=== PATIENT | female | born 1950 | race Caucasian/White ===

== ENCOUNTER → 2016-12-14 | Outpatient (CLI) | payer OTHER, BC ==
[~2016-12-14] MED LIST: GADOBUTROL 10 ML VIAL IVP ONE
== END ==
LOC: FIMAGING 12:16
PROVIDERS: ATTEND Family Medicine
DX: Z12.31 Encounter for screening mammogram for malignant neoplasm of breast (principal); Z80.3 Family history of malignant neoplasm of breast
CPT/HCPCS: 0159T; A9585; C8908; G0202

== ENCOUNTER 2017-03-09 06:11 | Inpatient (IN) | payer OTHER, BC ==
[~2017-03-09 06:11] MED LIST changes: +ACETAMINOPHEN 325 MG TAB PO ONE; +DEXAMETHASONE 4 MG/ML VIAL IVP ONE; +FAMOTIDINE 20 MG TAB PO ONE; -GADOBUTROL 10 ML VIAL IVP ONE; +ROPIVACAINE 0.2% 80 MG, EPINEPHrine 0.2 MG, KETOROLAC TROMETHAMINE 30 MG in SYRINGE 0 ML IU ONE; +TRANEXAMIC ACID 3,000 MG in NS 50 ML IRR ONE; +ceFAZolin 2 GM/SWFI 2 GM/20 ML SYR IVP ONE
[2017-03-09] MEDS ORDERED: ceFAZolin 2 GM/SWFI 2 GM/20 ML SYR IVP ONE (06:13)
[2017-03-09] MEDS ORDERED: DEXAMETHASONE 4 MG/ML VIAL IVP ONE (06:13)
[2017-03-09] MEDS ORDERED: ACETAMINOPHEN 325 MG TAB PO ONE (06:13)
[2017-03-09] MEDS ORDERED: FAMOTIDINE 20 MG TAB PO ONE (06:13)
[2017-03-09] MEDS ORDERED: LR 1,000 ML IV ONE (06:34)
[2017-03-09] MEDS ORDERED: TRANEXAMIC ACID 3,000 MG/50 ML BAG IRR ONE (06:50)
[2017-03-09] MEDS ORDERED: MIDAZOLAM 2 MG/2 ML VIAL ONE (06:57)
--- NOTE | 2017-03-09 06:57 | PDANEPAE ---
ANE Past Medical History - Cardiovascular History Hx Hypertension: Yes Hx Arrhythmias: No Hx Chest Pain: No Hx Coronary Artery / Peripheral Vascular Disease: No Hx CHF / Valvular Disease: No Hx Palpitations: No Cardiovascular History Comment: MURMUR - Pulmonary History Hx COPD: No Hx Asthma/Reactive Airway Disease: Yes Hx Recent Upper Respiratory Infection: No Hx Sleep Apnea: No Sleep Apnea Screening Result - Last Documented: Negative Pulmonary History Comment: EXERCISE INDUCED ASTHMA - Neurologic History Hx Cerebrovascular Accident: No Hx Seizures: No Hx Dementia: No - Endocrine History Hx Diabetes: No - Renal History Hx Renal Disorders: No - Liver History Hx Hepatic Disorders: No - Neurological & Psychiatric Hx Hx Neurological and Psychiatric Disorders: Yes Neurological / Psychiatric History Comment: DEPRESSION - Cancer History Hx Cancer: No - Congenital Disorder History Hx Congenital Disorders: No - GI History Hx Gastrointestinal Disorders: No - Other Health History Other Health History: MISSING LOWER TOOTH. OSTEOARTHRITIS - Chronic Pain History Chronic Pain: Yes (RT HIP) - Surgical History Prior Surgeries: LT TOTAL HIP 06/2015 ANE Review of Systems Review of Systems: - Exercise capacity METS (RN): 4 METS ANE Patient History - Allergies Allergies/Adverse Reactions: No Known Allergies Allergy (Unverified 11/27/09 15:43) - Home Medications Home Medications: Albuterol [Ventolin Hfa Inhaler] 2 puffs IH DAILY PRN 05/29/15 [Last Taken 07/01 06:00] Atorvastatin Calcium [Lipitor 20 mg (*)] 20 mg PO DAILY06 05/29/15 [Last Taken 07/02/15 05:15] Budesonide 180 Mcg INH [Pulmicort 180Mcg Flexhaler (*)] 2 puffs IH BID 05/29/15 [Last Taken 06/18/15] Herbals/Supplements -Info Only 1 ea PO DAILY 05/29/15 [Last Taken 06/18/15] Losartan Potassium [Cozaar 25 mg (*)] 25 mg PO DAILY06 05/29/15 [Last Taken 15:00] Multivitamins [Multivitamin (*)] 1 each PO DAILY 05/29/15 [Last Taken 06/18/15] [place]-3 Fatty Acids [Fish Oil 1000 mg (*)] 1,000 mg PO DAILY 05/29/15 [Last Taken 06/18/15] buPROPion XL [Wellbutrin 150mg XL] 300 mg PO DAILY06 05/29/15 [Last Taken 05:15] - Smoking Hx Smoking Status: Never smoked - Family Anes Hx Family Hx Anesthesia Complications: NEG ANE Labs/Vital Signs - Vital Signs Height: 172.72 cm Weight: 72.575 kg ANE Physical Exam - Airway Neck exam: FROM Mallampati Score: Class 2 Mouth exam: normal dental/mouth exam - Pulmonary Pulmonary: no respiratory distress - Cardiovascular Cardiovascular: regular rate and rhythym - ASA Status ASA Status: II ANE Anesthesia Plan Anesthesia Plan: spinal Total IV Anesthesia: Yes
[2017-03-09] MEDS ORDERED: BUPIVACAINE/DEXTROSE 7.5MG/ML 2 ML SPINAL AMP SP ONE (06:58)
[2017-03-09] MEDS ORDERED: KETOROLAC 30 MG/1 ML SDV ONE (06:58)
[2017-03-09] MEDS ORDERED: LIDOCAINE 2% 100 MG/5 ML SYR ONE (06:58)
[2017-03-09] MEDS ORDERED: METOCLOPRAMIDE 10 MG/2 ML VIAL ONE (06:58)
[2017-03-09] MEDS ORDERED: PROPOFOL/EMULSION 500 MG/50 ML BOTTLE IV ONE (06:58)
--- NOTE | 2017-03-09 07:24 | PDHPUP ---
History & Physical Update H&P update statement: This history and physical update is based on an assessment of the patient which was completed after admission or registration (within 24 hours), but prior to the surgery/procedure. H&P update: H&P reviewed & patient examined, no change in patient's condition since H&P completed
[2017-03-09] MEDS ORDERED: PHENYLEPHRINE HCL 100 MCG/ML SYR ONE (08:00)
[2017-03-09] MEDS ORDERED: LACTULOSE 20 GM/30 ML UDCUP PO PRN (08:37)
[2017-03-09] MEDS ORDERED: PROMETHAZINE HCL 25 MG SUPPR PR PRN (08:37)
[2017-03-09] MEDS ORDERED: DIPHENOXYLATE/ATROPINE LOMOTIL 1 TAB PO PRN (08:37)
[2017-03-09] MEDS ORDERED: ONDANSETRON 4 MG/2 ML VIAL IVP PRN ×2 (08:37→08:44)
[2017-03-09] MEDS ORDERED: diphenhydrAMINE 25 MG CAP PO PRN (08:37)
[2017-03-09] MEDS ORDERED: BISACODYL 10 MG SUPP PR PRN (08:37)
[2017-03-09] MEDS ORDERED: MAGNESIUM HYDROXIDE 30 ML UDCUP PO PRN (08:37)
[2017-03-09] MEDS ORDERED: POLYETHYLENE GLYCOL 3350 17 GM PKT PO PRN (08:37)
[2017-03-09] MEDS ORDERED: PROMETHAZINE HCL 25 MG/ML INJ IVP PRN (08:37)
[2017-03-09] MEDS ORDERED: TEMAZEPAM 15 MG CAP PO PRN (08:37)
[2017-03-09] MEDS ORDERED: METOCLOPRAMIDE 10 MG/2 ML VIAL IVP PRN (08:37)
--- NOTE | 2017-03-09 08:37 | POSTOPPROG ---
Post Op Note Date of Operation: 03/09/17 Surgeon: George Barry Turret Press Operator: norberto barry Anesthesiologist: dr. chang Anesthesia: Spinal Pre-op Diagnosis: right hip OA Post-op Diagnosis: same Indication: right hip pain due to OA that failed conservative measures Procedure: R TERESA ant approach Findings: severe hip OA Inf/Abcess present in the surg proc area at time of surgery?: No EBL: 100-500
[2017-03-09] MEDS ORDERED: ACETAMINOPHEN 500 MG TAB PO PRN (08:44)
[2017-03-09] MEDS ORDERED: fentaNYL 100 MCG/2 ML INJ IVP PRN (08:44)
[2017-03-09] MEDS ORDERED: NALOXONE HCL 0.4 MG/ML INJ IVP PRN (08:44)
[2017-03-09] MEDS ORDERED: MEPERIDINE 25 MG/ML SYR IVP PRN (08:44)
[2017-03-09] MEDS ORDERED: OXYCODONE/APAP 5/325 TAB PO PRN (08:44)
[2017-03-09] MEDS ORDERED: ALBUTEROL 3 ML DEYVIAL IH PRN (08:44)
[2017-03-09] MEDS ORDERED: HYDROCODONE/APAP 5/325 TAB PO PRN (08:44)
--- NOTE | 2017-03-09 08:46 | POSTANESTH ---
Post Anesthetic Evaluation Cardiovascular Status: Similar to Pre-Op Cond Respiratory Status: Similar to Pre-op Cond. Level of Consciousness/Mental Status: Alert and Oriented Pain Control: Adequate, Prn Tx Ordered Nausea/Vomiting Control: Adequate, Prn Tx Ordered Complications Possibly Related to Anesthesia: None Noted
[2017-03-09] MEDS: ACETAMINOPHEN 325 MG TAB PO SCH ×3 (11:11→23:25)
[2017-03-09] MEDS: ONDANSETRON DISINTEGRATING 4 MG TAB PO PRN ×3 (11:11→20:46)
[2017-03-09] MEDS: oxyCODONE IR 5 MG TAB PO PRN ×4 (11:12→20:45)
[2017-03-09] MEDS: ASPIRIN 81 MG CHEWABLE TAB PO SCH ×2 (12:06→20:46)
[2017-03-09] MEDS: SENNOSIDES/DOCUSATE SODIUM TAB PO SCH ×2 (12:09→20:46)
[2017-03-09] MEDS ORDERED: NON-FORMULARY NEW DRUG (Albuterol 2 PUFFS) IH PRN (12:18)
[2017-03-09] MEDS ORDERED: ALBUTEROL 60 PUFFS/8 GM MDI IH PRN ×2 (12:29→15:37)
[2017-03-09] MEDS ORDERED: ceFAZolin 2 GM/DEXTROSE 100 ML IV SCH (14:00)
[2017-03-09] MEDS: LR 1,000 ML IV SCH ×2 (14:03→23:21)
[2017-03-09] MEDS: ceFAZolin 2 GM/SWFI 2 GM/20 ML SYR IVP SCH ×2 (14:06→22:04)
[2017-03-09] MEDS: BUDESONIDE 180 MCG MDI IH SCH (17:07)
[2017-03-09] MEDS: FAMOTIDINE 20 MG TAB PO SCH (20:46)
[2017-03-09] MEDS ORDERED: BUDESONIDE 180 MCG IH SCH (21:00)
[2017-03-09] MEDS: CYCLOBENZAPRINE 10 MG TAB PO PRN (23:25)
--- NOTE | 2017-03-10 02:45 | GOP ---
[f rep st] OPERATIVE REPORT DATE OF OPERATION: 03/09/2017 SURGEON: Deirdre Akhtar MD ALARM MECHANISM ADJUSTER: Delores Akhtar PA-C ANESTHESIA: Spinal. PREOPERATIVE DIAGNOSIS: Right hip osteoarthritis. POSTOPERATIVE DIAGNOSIS: Right hip osteoarthritis. PROCEDURE PERFORMED: Right total hip arthroplasty with x-ray. FINDINGS: ESTIMATED BLOOD LOSS: 200 cc. INDICATIONS: The patient has progressively worsening arthritis of the hip which has failed medical m anagement. The patient understands the treatment options including continued non-operative care and has selected surgical intervention. The patient has decided to undergo total hip arthroplasty via th e direct anterior approach, understanding the risks of the procedure including, but not limited to, n eurovascular injury, infection, persistent pain, component wear and loosening, deep venous thrombosis , pulmonary embolism, limb length inequality, hip instability (including dislocation), and intra-oper ative fractures. DESCRIPTION OF PROCEDURE: After proper identification of the patient including verification and gwen ing the surgical site, the patient was brought to the operating room and placed in the supine positio n. All bony prominences were well padded. Anesthesia was induced without complication and intraveno us prophylactic antibiotics were administered prior to skin incision. The operative leg was placed in the Trumpf Arch table extension and the well leg in a [place]in leg ho lder. The patient was prepped and draped in the usual sterile fashion. The C-arm was draped for int ra-operative fluoroscopy to check acetabular position, femoral component position including leg lengt h and femoral offset. Attention was then drawn to surgical exposure of the hip. An incision was made with a #10 Bard Josephine r blade starting 3 cm lateral and 3 cm distal to the anterior superior iliac spine measuring 8-10 cm and coursing distally toward the greater trochanter. The skin and subcutaneous tissues were divided sharply down to the fascia jackie. The fascia jackie was incised in line with the skin incision exposing the underlying tensor fascia jackie muscle. The muscle was bluntly elevated from the fascia and the f irst extracapsular Cobra retractor was placed laterally at the junction of the superior femoral neck and greater trochanter. The lateral femoral circumflex vessels were identified, cauterized, and divi ded with the Aquamantys bipolar cautery. The deep investing fascia of the TFL was divided to allow p heather mobilization of the muscle preventing damage during the retraction. The reflected head of the rectus femoris muscle was elevated off the anterior hip capsule and a medial Cobra retractor was plac ed just proximal to the lesser trochanter. The anterior capsulotomy was made sharply from the superolateral acetabulum to the saddle junction of the superior femoral neck and greater trochanter, then coursing inferomedial towards the lesser troc hanter. The retractors were then placed in the intracapsular position for femoral neck osteotomy. C orresponding to pre-operative templating, the osteotomy was made with the oscillating saw carefully p rotecting the greater trochanter and soft tissues. The femoral head was removed from the acetabulum with a corkscrew and confirmed to be severely arthritic with exposed bone, deformity and osteophytes. Similar findings were confirmed in the acetabulum. The Arch table extension was then placed in 40 degrees external rotation. Attention was then drawn to the acetabular preparation. After placement of the anterior and posterio r Cobra retractors outside the labrum and intracapsular, the circumferential labrum was removed sharp ly. The foveal contents were then removed and hemostasis obtained with cautery. The first reamer selected was sized using the removed femoral head. Reaming began with medialization and then commenced in 2 mm increments at 45 degrees of abduction and 15 degrees of anteversion using fluoroscopic navigation. Reaming ceased 1 mm less than the definitive acetabular component and cecilio esponded to the pre-operative templating. The final acetabular component was inserted using fluorosc opy to achieve proper orientation yielding excellent purchase and stability in the acetabulum. The f inal acetabular liner was then placed and its seating confirmed. Attention was then turned to the femur. The Arch table extension was placed in extension and adducti on, delivering the osteotomized femoral neck into the wound. A 2-pronged femoral elevator was placed at the calcar and another at the tip of the greater trochanter. The posterolateral capsule was rele ased with cautery allowing mobilization of the femur lateral and anterior for preparation. The exter nal rotators were visualized and preserved. A curette and rongeur were used to open the starting poi nt for broaching. Serial broaching started with the #0 broach and ended with the broach that exhibit ed excellent fit in the proximal femur. A change in pitch during mallet strikes was accompanied by t he inability to advance the broach any further. The trial reduction was performed and fluoroscopic n avigation was utilized to check limb length. Adjustments were made to equalize limb length according ly. After the final trials were accepted they were removed and the wound was copiously lavaged. The femo ral component was seated to the same depth as the final broach and the femoral head was impacted onto the clean trunnion. The hip was then reduced for the final time and once more fluoroscopy was used to check that limb length equality was achieved. The wound was irrigated and closed in layers, the fascia jackie with 2-0 Quill, the subcutaneous tissue with 2-0 Quill, and the skin with Dermabond. Sterile dressings were applied. Final sharps and spon ge counts were accurate. The patient was then transferred to a hospital bed and brought to the [facility] room in stable condition. IMPLANTS: Accolade II, size 4 at 127. Acetabular component a 52 mm Tritanium. The liner is a Tride nt X3, 32 mm. The head is a Biolox Delta, 32 mm -4. /[id number]/MODL
[2017-03-10 05:27] VITALS: TEMP 98.2
[2017-03-10] MEDS: ACETAMINOPHEN 325 MG TAB PO SCH (05:53)
[2017-03-10] MEDS ORDERED: buPROPion XL 150 MG TAB PO SCH (06:00)
[2017-03-10] MEDS ORDERED: LOSARTAN POTASSIUM 25 MG TAB PO SCH (06:00)
[2017-03-10] MEDS ORDERED: ATORVASTATIN CALCIUM 20 MG TAB PO SCH (06:00)
[2017-03-10 07:44] VITALS: BP 110/55
--- NOTE | 2017-03-10 08:26 | GDS ---
[f rep st] DISCHARGE SUMMARY ADMISSION DIAGNOSIS: Right hip osteoarthritis DISCHARGE DIAGNOSIS: Right hip osteoarthritis. PROCEDURE: Right total hip arthroplasty. VTE PROPHYLAXIS: Aspirin 81 mg twice daily for 4 weeks recommended. BRIEF DESCRIPTION OF HOSPITAL STAY: Patient was admitted for an elective joint arthroplasty. The pa jamie tolerated the procedure well and has passed physical therapy. The patient was given appropriat e antibiotic prophylaxis and venous thromboembolism prophylaxis. The patient's pain was well control led on oral pain medication, patient was holding down food, and had urinated. Decision was made to d ischarge the patient. The patient was given post-operative prescriptions pre-operatively. PLAN: Follow up as scheduled March 24 at 11:00 a.m. /[id number]/MODL
--- NOTE | 2017-03-10 08:58 | SOAPPROG ---
SOAP Progress Note Assessment/Plan: Assessment: Patient is doing well POD 1 s/p R TERESA Pain management: pain is well controlled on oral pain meds. VTE ppx: recommend aspirin 81 mg BID for 4 weeks, cont LENY and SCDs Anemia: level is expected initially postop. Asymptomatic. Continue to monitor D/c planning: d/c to home today pending release from PT nausea: resolved with zofran, script was already given to patient at preop appt. recommend avoiding oxycodone if pain is mild Plan: 03/10/17 08:57 Subjective: Claudia is doing well, mild nausea yesterday afternoon, denies SOB, chest pain. Objective: Vital Signs Temp Pulse Resp BP Pulse Ox 36.8 C 62 16 110/55 L 97 03/10/17 07:42 03/10/17 07:42 03/10/17 07:42 03/10/17 07:42 03/10/17 07:42 Laboratory Results 03/10/17 05:23 03/09/17 03/10/17 03/11/17 05:59 05:59 05:59 Intake Total 3460 1847 Output Total 3300 Balance 160 1847 RLE:incision dressing is clean and dry, NVI, +pf/df ICD10 Worksheet Patient Problems: Problems Problem Status Onset Primary localized osteoarthritis of right hip Acute Primary localized osteoarthritis of left hip Acute
[2017-03-10] MEDS: FAMOTIDINE 20 MG TAB PO SCH (09:16)
[2017-03-10] MEDS: SENNOSIDES/DOCUSATE SODIUM TAB PO SCH (09:16)
[2017-03-10] MEDS: CYCLOBENZAPRINE 10 MG TAB PO PRN (09:16)
[2017-03-10] MEDS: BUDESONIDE 180 MCG MDI IH SCH (09:39)
[2017-03-10 09:44] VITALS: PULSE 60; RESP 12; O2SAT 94
[2017-03-10] MEDS: ASPIRIN 81 MG CHEWABLE TAB PO SCH (10:19)
--- NOTE | 2017-03-10 12:23 | ASDISCHSUM ---
Discharge Information Plan Status:Home with No Needs Medically Cleared to Leave: Discharge Date:03/10/2017 11:16 AM CM D/C Disposition:Home, Routine, Self-Care ADT D/C Disposition:Home, Routine, Self-Care Projected Discharge Date:03/10/2017 11:16 AM Transportation at D/C: Discharge Delay Reason: Follow-Up Date:03/10/2017 11:16 AM Discharge Slot: Final Diagnosis: Placement Information Patient Contact Information Contact Name:ANGEL LUIS Relationship:Friend Address: City: [facility] Phone: [facility] Code: Email: Financial Information Financial Class: Primary Plan Desc:MEDICARE INPATIENT Primary Plan Number:[id number] Secondary Plan Desc:[facility]/POS PPO Secondary Plan Number:[id number] Assessment Information LACE LACE Length of stay for Answers: 1 day current admission Acuity / Level of Answers: Yes Care: Did the patient have an inpatient admission? # of Emergency department Answers: 0 visits in the last 6 months Social determinants Answers: Mental health diagnosis (anxiety, depression, pers onality disorders, etc.) Score: 7 Date Signed: 03/10/2017 12:22 PM Electronically Signed By:REYNA Palacios Intervention Information
== END 2017-03-10 11:16 | disposition home or self-care (01) | DRG 470 ==
LOC: F3N 06:11
PROVIDERS: ADMIT Orthopaedic Surgery; ATTEND Orthopaedic Surgery
PROC: 0SR904Z Replacement of Right Hip Joint with Ceramic on Polyethylene Synthetic Substitute, Open Approach (ICD-10-PCS; principal; 2017-03-09 07:15)
DX: M16.11 Unilateral primary osteoarthritis, right hip (principal); I10 Essential (primary) hypertension; F32.9 Major depressive disorder, single episode, unspecified; Z96.642 Presence of left artificial hip joint
CPT/HCPCS: 97116-GP; 97161-GP; 97165-GO; 97530-GP; G8978-GP-CI; G8979-GP-CI; G8980-GP-CI; G8987-GO-CI; G8988-GO-CI; G8989-GO-CI; J0171; J0690; J1100; J1885; J2001; J2250; J2370; J2704; J2765; J2795

== ENCOUNTER → 2017-07-29 | Outpatient (CLI) | payer OTHER, BC ==
[~2017-07-29] MED LIST changes: -ACETAMINOPHEN 325 MG TAB PO ONE; -DEXAMETHASONE 4 MG/ML VIAL IVP ONE; -FAMOTIDINE 20 MG TAB PO ONE; +GADOBUTROL 10 ML VIAL IVP ONE; -ROPIVACAINE 0.2% 80 MG, EPINEPHrine 0.2 MG, KETOROLAC TROMETHAMINE 30 MG in SYRINGE 0 ML IU ONE; -TRANEXAMIC ACID 3,000 MG in NS 50 ML IRR ONE; -ceFAZolin 2 GM/SWFI 2 GM/20 ML SYR IVP ONE
== END ==
LOC: FIMAGING 10:28
PROVIDERS: ATTEND Family Medicine
DX: N60.29 Fibroadenosis of unspecified breast (principal); Z80.3 Family history of malignant neoplasm of breast
CPT/HCPCS: 0159T; A9585; C8908; 82565-PO

== ENCOUNTER → 2017-12-21 | Outpatient (CLI) | payer OTHER, BC | LOC: BHFA 12-21 09:15 | PROVIDERS: ATTEND Internal Medicine | DX: R01.1 Cardiac murmur, unspecified (principal) ==

== ENCOUNTER → 2017-12-27 | Outpatient (CLI) | payer OTHER, BC | LOC: BHFA 09:00 | PROVIDERS: ATTEND Internal Medicine Cardiovascular Disease | DX: I38 Endocarditis, valve unspecified (principal); I10 Essential (primary) hypertension ==

== ENCOUNTER → 2018-01-18 | Outpatient (CLI) | payer OTHER, BC | LOC: FIMAGING 07:53 | PROVIDERS: ATTEND Family Medicine | DX: R92.8 Other abnormal and inconclusive findings on diagnostic imaging of breast (principal); Z80.3 Family history of malignant neoplasm of breast | CPT/HCPCS: 0159T; A9585; C8908; 82565-PO ==

== ENCOUNTER 2018-06-01 13:32 | Emergency (ER) | payer OTHER, BC ==
--- NOTE | 2018-06-01 15:12 | EDPHY ---
H & P Stated Complaint: LUQ abdominal pain, poss diverticulosis, sent from Time Seen by Provider: 06/01/18 15:11 HPI/ROS: CHIEF COMPLAINT: Left lower quadrant pain HISTORY OF PRESENT ILLNESS: The patient presents the ED for evaluation of acute left lower quadrant pain which has been present for past several days. The patient does report injuring her back at a yoga events several days ago. She is uncertain if the pain is referred from a back injury. She denies any fever. She has had decreased appetite today. She denies any vomiting, diarrhea or melena. The patient denies significant past medical history. She denies prior history of diverticulitis. The patient rates her pain is moderate in nature. REVIEW OF SYSTEMS: A comprehensive 10 point review of systems is otherwise negative aside from elements mentioned in the history of present illness. Source: Patient - Personal History Current Tetanus/Diphtheria Vaccine: Unsure Current Tetanus Diphtheria and Acellular Pertussis (TDAP): Unsure - Medical/Surgical History Hx Asthma: Yes Hx Chronic Respiratory Disease: No Hx Diabetes: No Hx Cardiac Disease: No Hx Renal Disease: No Hx Cirrhosis: No Hx Alcoholism: No Hx HIV/AIDS: No Hx Splenectomy or Spleen Trauma: No Other PMH: RAD, Asthma, OA, HTN - Social History Smoking Status: Never smoked - Physical Exam Exam: General Appearance: Alert, no distress Eyes: Pupils equal and round no pallor or injection ENT, Mouth: Mucous membranes moist Respiratory: There are no retractions, lungs are clear to auscultation Cardiovascular: Regular rate and rhythm Gastrointestinal: Tenderness to deep palpation in the left lower quadrant, normal bowel sounds, soft abdomen, no peritoneal signs Neurological: 5/5 strength all 4 extremities Skin: Warm and dry, no rashes Musculoskeletal: Neck is supple nontender Extremities: symmetrical, full range of motion Constitutional: Initial Vital Signs Temperature (C) 36.6 C 06/01/18 13:52 Heart Rate 69 06/01/18 13:52 Respiratory Rate 16 06/01/18 13:52 Blood Pressure 134/83 H 06/01/18 13:52 O2 Sat (%) 94 06/01/18 13:52 O2 Delivery Mode Room Air Allergies/Adverse Reactions: No Known Allergies Allergy (Verified 03/09/17 10:58) Home Medications: Medication Instructions Recorded Albuterol [Ventolin Hfa Inhaler] 2 puffs IH DAILY PRN 05/29/15 Atorvastatin Calcium [Lipitor 20 20 mg PO DAILY06 05/29/15 mg (*)] Budesonide 180 Mcg INH [Pulmicort 2 puffs IH BID 05/29/15 180Mcg Flexhaler (*)] Herbals/Supplements -Info Only 1 ea PO DAILY 05/29/15 Losartan Potassium [Cozaar 25 mg 25 mg PO DAILY06 05/29/15 (*)] Multivitamins [Multivitamin (*)] 1 each PO DAILY 05/29/15 [place]-3 Fatty Acids [Fish Oil 1000 1,000 mg PO DAILY 05/29/15 mg (*)] buPROPion XL [Wellbutrin 150mg XL] 300 mg PO DAILY06 05/29/15 Acetaminophen [Tylenol 325mg (*)] 650 mg PO Q6HRS tab 03/10/17 Aspirin [Aspirin 81mg (*)] 81 mg PO BID tab.chew 03/10/17 Cyclobenzaprine [Flexeril 10 MG 10 mg PO Q8HRS PRN tab 03/10/17 (*)] Sennosides/Docusate Sodium 1 - 2 tab PO BID tab 03/10/17 [Senokot-S] celeCOXIB [Celebrex (*)] 200 mg PO DAILY cap 03/10/17 oxyCODONE IR [Oxycodone Ir (*)] 5 - 10 mg PO Q3HRS PRN tab 03/10/17 Medical Decision Making - Diagnostics Imaging Results: CT abdomen pelvis with IV contrast: Images reviewed by myself and discussed with radiologist Dr. Zaman. Impression negative for acute phlegm a yogi process, perforation or obstruction. ED Course/Re-evaluation: Patient presents to the ED with mild left lower quadrant pain which has been present for several days following a injury at yoga. Given her tenderness she was seen at her primary care provider and referred to the ED for consideration of diverticulitis. In the ED the patient's abdominal examination is benign. She has only mild tenderness to deep palpation. The patient had an IV established. Her CBC, serum chemistries are within normal limits. The patient was taken for CT scan of the abdomen pelvis which demonstrates no evidence of an acute inflammatory process. Patient will be discharged home with instructions to begin anti-inflammatories for treatment of her pain. She has been instructed to return to the ED for increasing pain, fever, vomiting, dysuria, hematuria or other concerns. Differential Diagnosis: Differential diagnosis considered includes myofascial strain, rectus she has abscess, diverticulitis, perforation, obstruction, abscess - Data Points Laboratory Results: Laboratory Results 06/01/18 15:09 06/01/18 15:09 06/01/18 06/01/18 06/01/18 15:18 15:09 15:09 WBC 6.32 10^3/uL 10^3/uL (3.80-9.50) RBC 4.86 10^6/uL 10^6/uL (4.18-5.33) Hgb 15.1 g/dL g/dL (12.6-16.3) POC Hgb 15.6 gm/dL gm/dL (12.6-16.3) Hct 44.3 % % (38.0-47.0) POC Hct 46 % % (38-47) MCV 91.2 fL fL (81.5-99.8) MCH 31.1 pg pg (27.9-34.1) MCHC 34.1 g/dL g/dL (32.4-36.7) RDW 12.7 % % (11.5-15.2) Plt Count 217 10^3/uL 10^3/uL (150-400) MPV 8.9 fL fL (8.7-11.7) Neut % (Auto) 66.2 % % (39.3-74.2) Lymph % (Auto) 19.3 % % (15.0-45.0) [place] % (Auto) 10.9 % % (4.5-13.0) Eos % (Auto) 2.5 % % (0.6-7.6) Baso % (Auto) 0.8 % % (0.3-1.7) Nucleat RBC Rel Count 0.0 % % (0.0-0.2) Absolute Neuts (auto) 4.18 10^3/uL 10^3/uL (1.70-6.50) Absolute Lymphs (auto) 1.22 10^3/uL 10^3/uL (1.00-3.00) Absolute Monos (auto) 0.69 10^3/uL 10^3/uL (0.30-0.80) Absolute Eos (auto) 0.16 10^3/uL 10^3/uL (0.03-0.40) Absolute Basos (auto) 0.05 10^3/uL 10^3/uL (0.02-0.10) Absolute Nucleated RBC 0.00 10^3/uL 10^3/uL (0-0.01) Immature Gran % 0.3 % % (0.0-1.1) Immature Gran # 0.02 10^3/uL 10^3/uL (0.00-0.10) POC Sodium 141 mEq/L mEq/L (135-145) Sodium 137 mEq/L mEq/L (135-145) POC Potassium 3.8 mEq/L mEq/L (3.3-5.0) Potassium 4.2 mEq/L mEq/L (3.5-5.2) POC Chloride 103 mEq/L mEq/L (97-110) Chloride 103 mEq/L mEq/L (97-110) Carbon Dioxide 24 mEq/l mEq/l (22-31) POC Total CO2 23 mEq/L mEq/L (22-31) Anion Gap 10 mEq/L mEq/L (6-14) POC BUN 12 mg/dL mg/dL (7-23) BUN 13 mg/dL mg/dL (7-23) Creatinine 0.9 mg/dL mg/dL (0.6-1.0) POC Creatinine 0.9 mg/dL mg/dL (0.6-1.0) Estimated GFR > 60 Glucose 98 mg/dL mg/dL (70-100) POC Glucose 98 mg/dL mg/dL (70-100) Calcium 9.6 mg/dL mg/dL (8.5-10.4) Point of Care Test Results: Chemistry 06/01/18 15:18 POC Sodium 141 mEq/L mEq/L (135-145) POC Potassium 3.8 mEq/L mEq/L (3.3-5.0) POC Chloride 103 mEq/L mEq/L (97-110) POC Total CO2 23 mEq/L mEq/L (22-31) POC BUN 12 mg/dL mg/dL (7-23) POC Creatinine 0.9 mg/dL mg/dL (0.6-1.0) POC Glucose 98 mg/dL mg/dL (70-100) ISTAT H&H 04/18/19 15:18 POC Hgb 15.6 gm/dL gm/dL (12.6-16.3) POC Hct 46 % % (38-47) Departure - Departure Disposition: Home, Routine, Self-Care Clinical Impression: Abdominal pain Qualifiers: Abdominal location: left lower quadrant Qualified Code(s): R10.32 - Left lower quadrant pain Condition: Good Instructions: Acute Abdominal Pain (ED) Additional Instructions: Sometimes we are unable to diagnose an obvious cause of abdominal pain in the Emergency Department. Based upon our evaluation today, we see no obvious explanation for your pain. Because more serious conditions can be difficult to diagnose early in the course of their presentation, we ask that you return to the Emergency Department in 8-12 hours for a recheck if you are still having pain. This is necessary to exclude the development of a more serious condition such as appendicitis or other intra-abdominal emergency. In the event your pain markedly increases before that time or you develop intractable vomiting or fever return to the Emergency Department immediately. Take Ibuprofen or Motrin 600 mg by mouth three times a day.
[2018-06-01 15:26] LABS: PLATELET COUNT 217 10^3/uL (150-400)
[2018-06-01] MEDS ORDERED: IOPAMIDOL (ISOVUE-300) 100 ML BTL ONE (15:38)
[2018-06-01 16:32] VITALS: BP 123/79
== END 2018-06-01 17:17 | disposition home or self-care (01) ==
DX: R10.32 Left lower quadrant pain (principal); K57.30 Diverticulosis of large intestine without perforation or abscess without bleeding; I10 Essential (primary) hypertension
CPT/HCPCS: 74177; 99285; Q9967; 82435-PO; 82565-PO; 82947-PO; 84132-PO; 84295-PO; 84520-PO; 85014-ER

== ENCOUNTER → 2018-06-29 | Outpatient (CLI) | payer OTHER, BC | LOC: FIMAGING 09:00 | PROVIDERS: ATTEND Family Medicine | DX: Z12.31 Encounter for screening mammogram for malignant neoplasm of breast (principal); Z80.3 Family history of malignant neoplasm of breast ==